=== PATIENT | female | born 1945 | race Caucasian/White ===

== ENCOUNTER 2016-03-15 16:16 | Outpatient (RCR) | payer MEDICARE ==
[~2016-03-15 16:16] MED LIST: ALLO300T2 PO; ASCO-262 PO; BUDE10.2 IH; CYAN10007 PO; LORA10TA7 PO; LSNP20T PO; METF850T2 PO; MNTL10T PO; PANT40TA3 PO; SIMV80TA3 PO; TIOT18CA IH; UBID10CA5 PO
[2016-03-15 16:27] LABS: BASOPHILS % (AUTO) 1 % (0-2); EOSINOPHILS # (AUTO) 0.3 10^3uL; EOSINOPHILS % (AUTO) 3 % (0-4); LYMPHOCYTES # (AUTO) 1.7 X10^3; MEAN CORPUSCULAR HGB CONC 33.4 g/dL (31.0-37.0); MEAN CORPUSCULAR VOLUME 102 FL (80-100); MEAN PLATELET VOLUME 8.5 FL (6.0-9.5); MONOCYTES # (AUTO) 0.7 X10^3; MONOCYTES % (AUTO) 8 % (3-11); NEUTROPHILS # (AUTO) 5.8 X10^3; NEUTROPHILS % (AUTO) 67 % (51-67); PLATELET COUNT 267 10^3uL (150-450); WHITE BLOOD COUNT 8.55 10^3uL (4.0-11.0)
[2016-03-15 16:49] LABS: ALBUMIN 4.2 g/dL (3.4-5.0); ANION GAP 16.6 MEQ/L (3-15); TOTAL PROTEIN 7.9 g/dL (6.4-8.5)
[2016-03-16 13:54] LABS: IRON 133 ug/dL (50-170); UNBOUND IRON CONTENT 158 ug/dl (126-382)
== END 2016-06-13 | disposition home or self-care (01) ==
LOC: LAB 16:16
PROVIDERS: ATTEND Internal Medicine Hematology & Oncology
DX: N18.2 Chronic kidney disease, stage 2 (mild) (principal); D63.1 Anemia in chronic kidney disease
CPT/HCPCS: 36415; 80053; 82728; 83540; 83550; 85025

== ENCOUNTER → 2016-03-17 | Outpatient (CLI) | payer MEDICARE ==
--- NOTE | 2016-03-17 10:57 | Diagnostic Imaging Report ---
PROCEDURE: CT chest pelvis with and abdomen with and without contrast. TECHNIQUE: Multiple contiguous axial images were obtained through the chest, abdomen and pelvis after uneventful bolus administration of intravenous contrast. Precontrast acquisitions were acquired through the abdomen. INDICATION: Status post esophageal cancer resection. COMPARISON: PET/CT of 04/07/2015, CT chest of 02/04/[address] abdomen of 12/16/2014. CT CHEST FINDINGS: Since most recent comparison of 04/07/2015, there has been resection of the large distal esophageal tumor with gastric pull-through procedure. Contrast opacifies intrathoracic stomach and there is no discrete wall thickening in the distended portions of the stomach. The more proximal stomach/residual esophagus is decompressed which limits evaluation for wall thickening. No mediastinal or hilar lymphadenopathy. No supraclavicular or axillary lymphadenopathy. Thyroid was normal. Heart is normal in size with trace pericardial effusion, similar to prior. Thoracic aorta is normal in caliber with moderate atherosclerotic disease. No pleural effusion. There is mild right inferior pleural thickening from prior thoracotomy. Diffuse emphysema. New rounded subpleural nodule in the right lower lobe measures 2.1 x 1.7 cm and has surrounding bronchovascular architectural distortion as it approaches the pleura. No other pulmonary nodules, mass or consolidation. No concerning osseous lesions in the abdomen or pelvis. Old healed right-sided rib fractures are probably from thoracotomy. IMPRESSION: 1. Status post distal esophageal tumor resection with gastric pull-through procedure. No evidence of local recurrence. Please note that CT is suboptimal in evaluation for endoluminal lesions, which are better evaluated by endoscopy. 2. Development of subpleural rounded nodule in the periphery of the right lower lobe adjacent to the pleural thickening from thoracotomy. This is most compatible with rounded atelectasis. Attention to this region on followup is suggested. 3. Otherwise, no evidence of intrathoracic metastatic disease. CT ABDOMEN AND PELVIS FINDINGS: Surgical changes in distal esophagus with gastric pull-through are detailed above. Approximately one-quarter of the distal stomach remains in the abdominal cavity and is normal in appearance. The liver, gallbladder and spleen are normal. Pancreas and adrenals are also normal. Bilateral renal cysts are similar. Again, the dominant cyst is exophytic and arising from the lower pole of the right kidney measuring up to 12 cm in length. There is an exophytic lesion arising from the posterior aspect of the left kidney which has attenuation higher than simple fluid but does not enhance on postcontrast imaging. This likely represents a proteinaceous cyst, which has mildly enlarged since prior CT abdomen of 12/16/2014. No obstructive uropathy. No bowel obstruction. There are a few sigmoid colon diverticula, but no evidence of active diverticulitis. No abdominal or pelvic lymphadenopathy. Normal caliber extensively calcified abdominal aorta. Uterus is normal in appearance for patient's age. There is circumferential soft tissue thickening around the vagina and anal verge, which is nonspecific. No concerning focal osseous lesion. IMPRESSION: 1. No evidence of metastatic disease in the abdomen or pelvis. Postsurgical changes in the distal esophagus are detailed in the chest portion of this examination. 2. Enlargement of exophytic nonenhancing low-attenuation lesion in the inferior pole of the left kidney, likely representing a proteinaceous cyst. Large right renal cyst is unchanged. Dictated by: Dictated on workstation # [id number]
== END ==
LOC: RAD 09:06
PROVIDERS: ATTEND Internal Medicine Hematology & Oncology
DX: N18.2 Chronic kidney disease, stage 2 (mild) (principal); D63.1 Anemia in chronic kidney disease
CPT/HCPCS: 71260; 74178; Q9967

== ENCOUNTER 2016-03-29 15:15 | Outpatient (RCR) | payer MEDICARE | END 2016-04-16 15:42 | disposition home or self-care (01) | LOC: PT 15:15 | PROVIDERS: ATTEND Physician Assistant | DX: H81.49 Vertigo of central origin, unspecified ear (principal) | CPT/HCPCS: 95992; 97161; G8990; G8991; G8992 ==

== ENCOUNTER 2016-05-19 13:45 | Outpatient (RCR) | payer MEDICARE ==
--- NOTE | 2016-04-02 13:05 | PT/OT/ST INITIAL EVALUATION ---
Department of Health and Human Services Form Approved Health Care Financing Administration OMB No. [id number] PLAN OF CARE/ASSESSMENT FOR OUTPATIENT REHABILITATION (Complete for Initial Claims Only) 1. LAST NAME Radha FIRST NAME Erika Lama 2. ACC # [id number] 3. [facility] [id number] 4. PROVIDER NO. [id number] 5. TYPE: X PT 6. PRIOR THERAPY (Same condition) 7. PRIMARY DX Neck pain 8. SECONDARY DX Stiffness cervical spine 9. ONSET DATE 03/16/2016 10. REFERRAL DATE 11. SOC. DATE/TIME 03/30/2016 11:00 a.m. 12. PRIOR LEVEL OF FUNCTION; PERTINENT HISTORY (Prior therapy results, reason for referral.) S: Prior to therapy, the patient did consent to today's evaluation and treatment. The patient is a 70-year-old female referred to physical therapy by Dr. Aniket Bartholomew to address neck pain. The patient rates overall and general health as fair. Mechanism of injury: The patient does not recall a specific event. She has had previous neck pain and aches approximately 15 to 20 years ago. Primary Complaint: Neck pain with a secondary complaint of general back pain. Looking up and down causes pain in her neck. Looking to the left and right causes pain. Sitting up straight in a chair also causes pain in her mid back. The patient states she has had these aches and pains for a while now, but they have gradually continued to get worse. Prior function: Prior to the increased neck and back pain, the patient was able to function and do normal tasks. Current function: Currently she is able to perform tasks, but requires extended rest due to pain and fatigue. Therapy History: The patient does have a prior therapy history for shoulder and neck issues. Obstacles to delivery of care: The patient has an extensive history of surgeries and different comorbidities that could affect the outcomes for physical therapy. The patient describes the pain as a sharp pain, sometimes a pulling sensation and an ache. Aggravating factors includes overhead arm movements, looking up and down, looking side to side, and general just changing positions of her head. Relieving factors: Includes heating pad on her back, as well as Icy Hot and a roller that applies heat on her neck seem to relieve her symptoms. Diagnostic tests: No diagnostic tests available on the patient's cervical and thoracic spine. Past medical history: The patient has an extensive surgery in her history. The patient has a previous surgery involved the lung, stomach, heart and esophagus. She has a left posterior internal incision on the lateral rib cage. Medication list: The patient states she takes several medications. Specific pain medication that she does remember at this time is Tramadol. The patient's goal for physical therapy is she wants to return to functional tasks without pain and fatigue and she wants to consume less pain meds to get through her day. 13. INITIAL ASSESSMENT/SAFETY PRECAUTIONS/MEDICAL COMPLICATIONS (Level of function at start of care. Be specific, use objective measures, list problems.) O: APPEARANCE AND OBSERVATION: The patient has increased kyphotic posture in the thoracic spine. Forward rounded shoulders, protracted scapula, and increased lordotic curvature of the cervical spine. PALPATION: The patient has tenderness at cervical paraspinals, upper trapezius, and thoracic paraspinals. The patient had general pain with any cervical movements. Most central PAs were painful and unilateral PAs as well. Central PAs of the upper thoracic spine were most painful. RANGE OF MOTION/FLEXIBILITY: The patient's cervical flexion was 45 degrees, cervical extension was 40 degrees, rotation to the right was 58 degrees, and rotation to the left was 55 degrees. Side bend to the right to was 30 degrees, and side bend to the left was 30 degrees. All of these motions were painful for the patient. The most painful was bilateral side bend. Bilaterally the patient experienced the most pain with this and this pain descended down to her thoracic spine. TODAY'S TREATMENT: Today's treatment consisted of manual therapy, therapeutic exercise and evaluation. 14. INITIAL POC: (Specify procedures, modalities, short and longterm goals) A: Due to a personal health rating of fair, the patient has a fair prognosis for therapy. OUTCOME ASSESSMENT: The patient took the [employer] cervical spine questionnaire and scored a 20% disability. FUNCTIONAL LIMITATIONS: The patient has trouble with head movements, changing positions and keeping normal posture. FUNCTIONAL LIMITATION CODES: [id number] and [id number] The diagnosis, prognosis, treatment plan, risks and expected outcome were discussed with the patient and family. The patient and family agree to today's established plan of care. The patient is experiencing aches and pains due to abnormal posture from extensive past medical history of surgeries. These surgeries have led to the patient's poor posture, which stress certain areas of her spine, which is presenting as general pain. GOALS: 1. The patient will be independence and compliant with home exercise program in 1 week for improved prognosis and improved effectiveness of skilled therapeutic interventions. 2. The patient will improve gross neck range of motion by 20% in 4 weeks for improved movement of the head during necessity of changing head positions during driving and functional activities. 3. The patient will improve reproduction of pain with end range head movements from 5/10 to 2/10 pain for improved functional ability during changing of head position in 6 weeks. 4. The patient with a neck disability index no more than 15% limited in 6 weeks to allow unrestricted self-care. PLAN: Plan to treat the patient 2 times per week for 6 weeks in order to address cervical and thoracic spine pain. Treatments include, but are not limited to, modalities such as ultrasound and iontophoresis for increased tissue extensibility and decreased pain. Manual therapy for improved joint arthrokinematics and joint mobility. Therapeutic exercise for increased strengthening and postural strengthening. Balance and proprioceptive training for improved kinesthetic awareness of the spine during postural corrections and neural reeducation for improved muscular recruitment during posture in sitting and standing and patient education for improved therapeutic outcomes. 15. FUNCTIONAL LEVEL (End of claim period) 16. PHYSICIAN SIGNATURE ? ON FILE OR ENTER HERE: 17. DATE: I certify the need for these services furnished under this plan of care and if for partial hospitalization. 18. CERTIFICATION FROM THROUGH FORM
== END 2016-05-31 10:20 | disposition home or self-care (01) ==
LOC: PT 13:45
PROVIDERS: ATTEND Family Medicine
DX: M54.2 Cervicalgia (principal)
CPT/HCPCS: 97035; 97110; 97140; 97161; G8981; G8982; G8983

== ENCOUNTER 2016-06-14 13:14 | Outpatient (RCR) | payer MEDICARE ==
[2016-06-14 13:24] LABS: BASOPHILS % (AUTO) 1 % (0-2); EOSINOPHILS # (AUTO) 0.2 10^3uL; EOSINOPHILS % (AUTO) 4 % (0-4); LYMPHOCYTES # (AUTO) 1.8 X10^3; MEAN CORPUSCULAR HGB CONC 32.7 g/dL (31.0-37.0); MEAN PLATELET VOLUME 8.6 FL (6.0-9.5); MONOCYTES # (AUTO) 0.4 X10^3; MONOCYTES % (AUTO) 7 % (3-11); NEUTROPHILS # (AUTO) 3.8 X10^3; NEUTROPHILS % (AUTO) 60 % (51-67); PLATELET COUNT 224 10^3uL (150-450); WHITE BLOOD COUNT 6.31 10^3uL (4.0-11.0)
[2016-06-14 13:25] LABS: MEAN CORPUSCULAR HEMOGLOBIN 34.1 PG (26.0-34.0); MEAN CORPUSCULAR VOLUME 104 FL (80-100)
[2016-06-14 13:37] LABS: ANION GAP 13.6 MEQ/L (3-15); CALCULATED IONIZED CALCIUM 4.1 mg/dL (3.8-4.6); TOTAL PROTEIN 7.1 g/dL (6.4-8.5)
== END 2016-07-28 19:18 | disposition home or self-care (01) ==
LOC: LAB 13:14
PROVIDERS: ATTEND Internal Medicine Hematology & Oncology
DX: N18.2 Chronic kidney disease, stage 2 (mild) (principal); D63.1 Anemia in chronic kidney disease
CPT/HCPCS: 36415; 80053; 82784; 84155; 85025; 86334